=== PATIENT | female | born 1990 | race American Indian/Alaskan Native ===

== ENCOUNTER 2018-02-13 16:29 | Emergency (ER) | payer OTHER ==
[~2018-02-13] VITALS: Ht 165.1 cm; Wt 78.0 kg
[~2018-02-13 16:29] MED LIST: ACYCLOVIR800 MG PO; ASHLYNA 0.15-01 EACH PO; IBUPROFEN800 MG PO; NAPROSYN500 MG PO; NORCO 5-325 TA1 EACH PO; PREMARIN1.25 MG PO; PRENATAL-FOLIC1 EACH PO; ZOFRAN4 MG PO
== END 2018-02-13 18:25 | disposition home or self-care (01) ==
LOC: ED 16:29
DX: O99.89 Other specified diseases and conditions complicating pregnancy, childbirth and the puerperium (principal); R10.9 Unspecified abdominal pain; Z87.891 Personal history of nicotine dependence; Z79.899 Other long term (current) drug therapy; Z3A.13 13 weeks gestation of pregnancy
CPT/HCPCS: 80053; 81001; 85025; 99283

== ENCOUNTER 2020-06-07 12:40 | Inpatient (IN) | payer OTHER ==
[~2020-06-07] VITALS: Ht 165.1 cm; Wt 96.2 kg
[~2020-06-07 12:40] MED LIST changes: +ACYCLOVIR400 MG PO; +PRENATAL VITAM1 EAC6 PO
[2020-06-08] MEDS ORDERED: VITAFOL-OB+DHA1 EACH PO (00:42)
[2020-06-08] MEDS ORDERED: ASPIRIN81 MG PO (00:42)
[2020-06-08] MEDS ORDERED: ACYCLOVIR400 MG PO (00:54)
--- NOTE | 2020-06-08 03:16 | PR ---
[facility] [address] [place], [place] [address] Signed Progress Notes IP Datetime Report Generated by CPN: 06/08/2020 03:15 PROGRESS NOTES: [id number] Impression: Normal Progression of Labor; Gest. HTN/PreEclampsia/Eclampsia Other Impressions: Gestational HTN Procedures: Artificial ROM Plan: Continue Present Management Other Plans: Epidural on demand Informed Consent Obtain: Vaginal Delivery Other Informed Consents: AROM VITAL SIGNS: [id number] Vital Signs: Reviewed VS Notable Details: slightly elevated systolic EXAM: [id number] Dilatation: 3.0 Effacement: 80 Station: -3 Contractions: rare MEMBRANES: [id number] Comments: Pt seen and examined. AROM performed w/out difficulty. Cat 1 tracing. Continue expectant management. Epidural on demand. Reviewed anticipated course of labor. Pt w/ gestational HTN w/out severe range BPs or severe sx. Will monitor. FETUS A: [id number] FHR Baseline: 130 Variability: Moderate 6-25bpm Accelerations: 15X15 Decelerations: None FHR Category: Category I Presentation: Vertex Comments on Fetus A: No evidence of metabolic acidosis FETUS B: [id number] Signing Physician: Paddy Hare DO Copies: ~ *Electronically Signed* 06/08/20 031 PADDY HARE DO PATIENT NAME: MERRILL CONNER PROGRESS NOTE DATE OF : [birth year] PHYSICIAN: PADDY HARE DO RPT #: [id number] REPORT IS CONFIDENTIAL AND NOT TO BE RELEASED WITHOUT AUTHORIZATION
--- NOTE | 2020-06-08 08:03 | PR ---
[facility] [address] [place], [place] [address] Signed Progress Notes IP Datetime Report Generated by CPN: 06/08/2020 08:03 PROGRESS NOTES: [id number] Impression: Normal Progression of Labor; Reassuring Heart Rate Other Impressions: Gestational HTN Procedures: Sterile Vag Exam Plan: Continue Present Management Other Plans: Epidural on demand Informed Consent Obtain: Vaginal Delivery Other Informed Consents: AROM VITAL SIGNS: [id number] Vital Signs: Reviewed VS Notable Details: slightly elevated systolic EXAM: [id number] Dilatation: 6.0 Effacement: 80 Station: -3 Contractions: rare MEMBRANES: [id number] Comments: Pt seen and examined. Doing well. Comfortable w/ epidural. Cx 6 / 80 but very soft and stretchy. Reviewed anticiapted course of labor. If no change noted on next exam, would likely place IUPC and start pictocin. Pt understands and agrees. FETUS A: [id number] FHR Baseline: 130 Variability: Moderate 6-25bpm Accelerations: 15X15 Decelerations: None FHR Category: Category I Presentation: Vertex Comments on Fetus A: No evidence of metabolic acidosis FETUS B: [id number] Signing Physician: Paddy Hare DO Copies: ~ *Electronically Signed* 06/08/20 0803 PADDY HARE DO PATIENT NAME: MERRILL CONNER PROGRESS NOTE DATE OF : 91 PHYSICIAN: PADDY HARE DO RPT #: [id number] REPORT IS CONFIDENTIAL AND NOT TO BE RELEASED WITHOUT AUTHORIZATION
--- NOTE | 2020-06-08 09:03 | PR ---
[facility] [address] [place], [place] [address] Signed Progress Notes IP Datetime Report Generated by CPN: 06/08/2020 09:03 PROGRESS NOTES: [id number] Impression: Reassuring Heart Rate Other Impressions: slow progress of labor Procedures: Intrauterine Pressure Catheter; Scalp Electrode; Sterile Vag Exam Plan: Continue Present Management Other Plans: Epidural on demand Informed Consent Obtain: Vaginal Delivery Other Informed Consents: AROM VITAL SIGNS: [id number] Vital Signs: Reviewed VS Notable Details: slightly elevated systolic EXAM: [id number] Dilatation: 6.0 Effacement: 80 Station: -2 Contractions: rare MEMBRANES: [id number] Comments: Pt seen and examined. Developed recurrent variable decelerations with moderate variability. Discussed IUPC and FSE and these were placed without difficulty. Will start amnioinfusion. FETUS A: [id number] FHR Baseline: 130 Variability: Moderate 6-25bpm Accelerations: 15X15 Decelerations: None FHR Category: Category I Presentation: Vertex Comments on Fetus A: No evidence of metabolic acidosis FETUS B: [id number] Signing Physician: Paddy Hrae DO Copies: ~ *Electronically Signed* 06/08/20 09 PADDY HARE DO PATIENT NAME: MERRILL CONNER PROGRESS NOTE DATE OF : 91 PHYSICIAN: PADDY HARE DO RPT #: [id number] REPORT IS CONFIDENTIAL AND NOT TO BE RELEASED WITHOUT AUTHORIZATION
--- NOTE | 2020-06-08 12:14 | PR ---
[facility] [address] [place], [place] [address] Signed Progress Notes IP Datetime Report Generated by CPN: 06/08/2020 12:14 PROGRESS NOTES: [id number] Impression: Normal Progression of Labor; Reassuring Heart Rate Other Impressions: slow progress of labor Procedures: Sterile Vag Exam Plan: Augmentation Other Plans: Epidural on demand Informed Consent Obtain: Vaginal Delivery Other Informed Consents: AROM VITAL SIGNS: [id number] Vital Signs: Reviewed VS Notable Details: slightly elevated systolic EXAM: [id number] Dilatation: 8.0 Effacement: 90 Station: -2 Contractions: rare MEMBRANES: [id number] Comments: Pt seen and examined. Cervical change noted despite inadequate contractions. FHT reassuring. Will start pitocin augmentation. Anticipate . Reviewed adequate pelvis and EFW _ 7#10oz FETUS A: [id number] FHR Baseline: 130 Variability: Moderate 6-25bpm Accelerations: 15X15 Decelerations: None FHR Category: Category I Presentation: Vertex Comments on Fetus A: No evidence of metabolic acidosis FETUS B: [id number] Signing Physician: Paddy Hare DO Copies: ~ *Electronically Signed* 06/08/20 1214 PADDY HARE DO PATIENT NAME: MERRILL CONNER PROGRESS NOTE DATE OF : 91 PHYSICIAN: PADDY HARE DO RPT #: [id number] REPORT IS CONFIDENTIAL AND NOT TO BE RELEASED WITHOUT AUTHORIZATION
--- NOTE | 2020-06-08 14:16 | PR ---
[facility] [address] [place], [place] [address] Signed Progress Notes IP Datetime Report Generated by CEE: 06/08/2020 14:16 PROGRESS NOTES: [id number] Impression: Normal Progression of Labor; Reassuring Heart Rate Other Impressions: slow progress of labor Procedures: Sterile Vag Exam Plan: Continue Present Management; Anesthesia Consult; Anticipate Vaginal Delivery Other Plans: Epidural on demand Informed Consent Obtain: Vaginal Delivery Other Informed Consents: AROM VITAL SIGNS: [id number] Vital Signs: Reviewed VS Notable Details: slightly elevated systolic EXAM: [id number] Dilatation: 9.5 Effacement: 100 Station: 0 Contractions: rare MEMBRANES: [id number] Comments: Pt seen and examined. Much more uncomfortable w/ contractions. Desires rebolus of epidural and anesthesia notified. 9.5cm 0 station. ROT position with some caput. Again reviewed adequate pelvis and EFW. Anticipate . All questions answered FETUS A: [id number] FHR Baseline: 130 Variability: Moderate 6-25bpm Accelerations: 15X15 Decelerations: None FHR Category: Category I Presentation: Vertex Comments on Fetus A: No evidence of metabolic acidosis FETUS B: [id number] Signing Physician: Paddy Hare DO Copies: ~ *Electronically Signed* 06/08/20 1416 PADDY HARE DO PATIENT NAME: MERRILL CONNER PROGRESS NOTE DATE OF : 91 PHYSICIAN: PADDY HARE DO RPT #: [id number] REPORT IS CONFIDENTIAL AND NOT TO BE RELEASED WITHOUT AUTHORIZATION
--- NOTE | 2020-06-08 15:27 | PR ---
[facility] [address] [place], [place] [address] Signed Progress Notes IP Datetime Report Generated by CPN: 06/08/2020 15:27 PROGRESS NOTES: [id number] Impression: Normal Progression of Labor; Reassuring Heart Rate Other Impressions: slow progress of labor Procedures: Sterile Vag Exam Plan: Continue Present Management; Anticipate Vaginal Delivery Other Plans: Epidural on demand Informed Consent Obtain: Vaginal Delivery Other Informed Consents: AROM VITAL SIGNS: [id number] Vital Signs: Reviewed VS Notable Details: slightly elevated systolic EXAM: [id number] Dilatation: 9.5 Effacement: 100 Station: 0 Contractions: rare MEMBRANES: [id number] Comments: Pt seen and examined. Doing well. Comfortable w/ contractions after epidural rebolus. vertex now spontaneously rotated to occiput anterior position and +1 station. Will start pushing and anticipate soon. Reviewed anticpated course of 2nd stage of labor w/ pt. FETUS A: [id number] FHR Baseline: 130 Variability: Moderate 6-25bpm Accelerations: 15X15 Decelerations: None FHR Category: Category I Presentation: Vertex Comments on Fetus A: No evidence of metabolic acidosis FETUS B: [id number] Signing Physician: Paddy Hare DO Copies: ~ *Electronically Signed* 06/08/20 1527 PADDY HARE DO PATIENT NAME: MERRILL CONNER PROGRESS NOTE DATE OF : 91 PHYSICIAN: PADDY HARE DO RPT #: [id number] REPORT IS CONFIDENTIAL AND NOT TO BE RELEASED WITHOUT AUTHORIZATION
--- NOTE | 2020-06-09 12:31 | PR ---
[facility] [address] [facility] [place], [place] [address] Signed PP Progress Notes Datetime Report Generated by CPN: 06/09/2020 12:30 SUBJECTIVE: [id number] Pain: Within Normal Limits Nausea/Vomiting: Denies Flatus: Yes Bowel Movement: No Vital Signs: [id number] Vital Signs: Reviewed; Within Normal Limits EXAM: Ongoing Cardiovascular: Normal Respiratory: Normal Abdomen/Uterus: Normal Lochia: Normal Vulva/Perineum: Not Done Breasts: Not Done CVA Tenderness: Normal Extremities: Normal Incision: Not Applicable Progress: Not Applicable Exam Comments: Fundus firm U-2 nontender IMPRESSION/PLAN/PROCEDURES: [id number] Impression: Normal Progression Other Impression: Gestational HTN Plan: Discharge Progress Notes: Pt seen and examined. Doing well. Ambulating, voiding, and tolerating full diet. Pain and lochia minimal. Bottle feeding. No severe range BPs. No RO, RUQ pain, or visual changes. No questions or concerns. Desires d/c home today. Reviewed d/c instructions in detail. F/U 3 d BP check, 2 wk pp visit Signing Physician: Paddy Hare DO Copies: ~ *Electronically Signed* 06/09/20 8532 PADDY HARE DO PATIENT NAME: MERRILL CONNER PROGRESS NOTE DATE OF : 91 PHYSICIAN: PADDY HARE DO RPT #: [id number] REPORT IS CONFIDENTIAL AND NOT TO BE RELEASED WITHOUT AUTHORIZATION
== END 2020-06-09 18:40 | disposition home or self-care (01) | DRG 768 ==
LOC: FBC 12:40
PROVIDERS: ADMIT Obstetrics & Gynecology; ATTEND Obstetrics & Gynecology
PROC: 3E0P7VZ Introduction of Hormone into Female Reproductive, Via Natural or Artificial Opening (ICD-10-PCS; 2020-06-07)
PROC: 10E0XZZ Delivery of Products of Conception, External Approach (ICD-10-PCS; principal; 2020-06-08)
PROC: 0UQJXZZ Repair Clitoris, External Approach (ICD-10-PCS; 2020-06-08)
PROC: 10907ZC Drainage of Amniotic Fluid, Therapeutic from Products of Conception, Via Natural or Artificial Opening (ICD-10-PCS; 2020-06-08)
PROC: 10H07YZ Insertion of Other Device into Products of Conception, Via Natural or Artificial Opening (ICD-10-PCS; 2020-06-08)
PROC: 00HU33Z Insertion of Infusion Device into Spinal Canal, Percutaneous Approach (ICD-10-PCS; 2020-06-08)
PROC: 3E0R3BZ Introduction of Anesthetic Agent into Spinal Canal, Percutaneous Approach (ICD-10-PCS; 2020-06-08)
PROC: 3E0234Z Introduction of Serum, Toxoid and Vaccine into Muscle, Percutaneous Approach (ICD-10-PCS; 2020-06-09)
DX: O13.4 Gestational [pregnancy-induced] hypertension without significant proteinuria, complicating childbirth (principal); Z37.0 Single live birth; O98.32 Other infections with a predominantly sexual mode of transmission complicating childbirth; Z3A.39 39 weeks gestation of pregnancy; O76 Abnormality in fetal heart rate and rhythm complicating labor and delivery; O32.2XX0 Maternal care for transverse and oblique lie, not applicable or unspecified; A60.04 Herpesviral vulvovaginitis; O26.893 Other specified pregnancy related conditions, third trimester; O66.0 Obstructed labor due to shoulder dystocia; O69.1XX0 Labor and delivery complicated by cord around neck, with compression, not applicable or unspecified; O77.0 Labor and delivery complicated by meconium in amniotic fluid; O71.82 Other specified trauma to perineum and vulva; Z67.41 Type O blood, Rh negative; Z87.891 Personal history of nicotine dependence; Z79.899 Other long term (current) drug therapy
CPT/HCPCS: 01960; 36415; 82565; 82570; 83030; 84156; 84450; 84520; 84550; 85025; 85027; 86850; 86900; 86901; A9270; J2590; J2790; J2795; J7121

== ENCOUNTER 2021-04-16 06:44 | Inpatient (IN) | payer OTHER ==
[~2021-04-16] VITALS: Ht 165.1 cm; Wt 99.3 kg
[~2021-04-16 06:44] MED LIST changes: +ASPIRIN81 MG PO; +VITAFOL-OB+DHA1 EACH PO
--- NOTE | 2021-04-16 09:42 | NUR ---
04/16/21 0942 Edel Myrick 0932- PT ARRIVES TO [facility] ROOM #106. PT REPORTS NO PAIN OR NAUSEA. RESP EVEN AND UNLABORED. OXYGEN SAT HIGH 90'S ON RA. BABY WITH FATHER AT THE BEDSIDE. 0936- BABY ON PT'S CHEST. MICHELLE ALBA AT THE BEDSIDE WELL.
--- NOTE | 2021-04-17 18:10 | PR ---
[facility] [address] [facility] [place], [place] [address] Signed PP Progress Notes Datetime Report Generated by CPN: 04/17/2021 18:10 SUBJECTIVE: [id number] Pain: Within Normal Limits Nausea/Vomiting: Denies Flatus: Yes Bowel Movement: No Vital Signs: [id number] Vital Signs: Reviewed; Within Normal Limits EXAM: Ongoing Cardiovascular: Normal Respiratory: Normal Abdomen/Uterus: Normal Lochia: Normal CVA Tenderness: Normal Extremities: Normal Incision: Normal Progress: Not Applicable Exam Comments: Fundus firm U-2 nontender. Incision healing well IMPRESSION/PLAN/PROCEDURES: [id number] Impression: Normal Progression Plan: Continue Present Management Progress Notes: Pt seen and examined. Doing well. Ambulating, voiding, and tolerating full diet. Pain and lochia minimal. Bottle feeding. No RO, RUQ pain, or visual changes Signing Physician: Paddy Hare DO Copies: ~ *Electronically Signed* 04/17/21 181 PADDY HARE DO PATIENT NAME: MERRILL CONNER [place] PROGRESS NOTE DATE OF : 91 PHYSICIAN: PADDY HARE DO [facility] #: [id number] REPORT IS CONFIDENTIAL AND NOT TO BE RELEASED WITHOUT AUTHORIZATION
--- NOTE | 2021-04-18 14:32 | PR ---
[facility] [address] [facility] [place], [place] [address] Signed PP Progress Notes Datetime Report Generated by CPN: 04/18/2021 14:32 SUBJECTIVE: [id number] Pain: Within Normal Limits Nausea/Vomiting: Denies Flatus: Yes Bowel Movement: No Vital Signs: [id number] Vital Signs: Reviewed Notable Details: No severe range BPs EXAM: Ongoing Cardiovascular: Normal Respiratory: Normal Abdomen/Uterus: Normal Lochia: Not Done Vulva/Perineum: Not Done Breasts: Not Done CVA Tenderness: Normal Extremities: Normal Incision: Normal Progress: Not Applicable Exam Comments: Fundus firm U-2 nontender IMPRESSION/PLAN/PROCEDURES: [id number] Impression: Normal Progression Other Impression: Gestational HTN Plan: Remove Teddy; Discharge Progress Notes: Pt seen and examined. Doing well. Ambulating, voiding, and tolerating full diet. Pain and lochia minimal. Bottlefeeding. No RO, RUQ pain or visual changes. No severe range BPs. Instructed pt to check BPs at home due to COVID positive. [place] removed by RN. F/U in office in 2 wks Signing Physician: Paddy Hare DO Copies: ~ *Electronically Signed* 04/18/21 1432 PADDY HARE DO PATIENT NAME: MERRILL CONNER PROGRESS NOTE DATE OF : 91 PHYSICIAN: PADDY HARE #: [id number] REPORT IS CONFIDENTIAL AND NOT TO BE RELEASED WITHOUT AUTHORIZATION
--- NOTE | 2021-05-08 07:58 | OR ---
[address] [address] Signed DATE OF OPERATION: 04/16/2021 SURGEON: Paddy Hare DO PREOPERATIVE DIAGNOSES: 1. Intrauterine at 38 and 5 weeks gestation. 2. Active labor with advanced cervical dilation. 3. Coronavirus disease positive. 4. Possible partial abruption. 5. Possible gestational hypertension. 6. History of shoulder dystocia. POSTOPERATIVE DIAGNOSES: 1. Intrauterine at 38 and 5 weeks gestation. 2. Active labor with advanced cervical dilation. 3. Coronavirus disease positive. 4. Possible partial abruption. 5. Possible gestational hypertension. 6. History of shoulder dystocia. PROCEDURE PERFORMED: Primary low transverse delivery. SURGEON: Paddy Hare DO ACADEMIC SUPPORT COORDINATOR: Jennifer Menjivar DO ANESTHESIA: Spinal. ESTIMATED BLOOD LOSS: 800 mL. COMPLICATIONS: None. FINDINGS: Viable female , born in the LOT position, nuchal with clear amniotic fluid. Electronically Signed By: PADDY HARE DO 05/08/21 0758 PATIENT NAME: MERRILL CONNER OPERATIVE REPORT DATE OF : [birth year] REPORT #: [id number] PHYSICIAN: PADDY HARE DO PCP: NO PRIMARY CARE PHYSICIAN REPORT IS CONFIDENTIAL AND NOT TO BE RELEASED WITHOUT AUTHORIZATION [address] [address] Signed Vigorous at delivery. Weight pending as well as blood gases. See documentation for Apgars. Normal uterus, tubes, and ovaries. INDICATIONS: Ms. Conner is a 30-year-old, G5, P4, white female, who presented to Labor and Delivery with advanced cervical dilation with onset of contractions approximately 1 hour previously that awoke her from sleep. Upon presentation, the patient was found to be noted to be 8 cm dilated with intact membranes. The patient had requested primary low-transverse delivery for history of shoulder dystocia with affected child. Risks, benefits, and alternatives were discussed in detail with the patient. The patient understands and wishes to proceed with the procedure. Small amount of vaginal bleeding was noted and suspicion for possible partial abruption was raised. The patient had elevated blood pressures. Preeclampsia workup is pending. TECHNIQUE: The patient was taken to the operating room where a time-out was performed to confirm correct patient and correct procedure. Spinal anesthesia was adequately established. The patient was then prepped and draped in the supine position with a bump under the right hip. A Miller catheter had previously been inserted. Ancef 2 g preoperatively were given as well as heparin 5000 units. Shortly upon presentation, terbutaline 0.25 mg had been administered to the patient as well. Spinal was checked and made sure to be adequate. Pfannenstiel skin incision was made using a surgical scalpel and carried down to the fascia. Fascia was nicked in the midline. Fascial incision was extended bilaterally using curved Harris scissors. The fascia was grasped with Sergey's, elevated, and the underlying rectus muscle dissected off bluntly and sharply. Rectus muscles were then divided bluntly in the midline and peritoneum was grasped with hemostats, elevated, and entered sharply. Peritoneal incision was extended bilaterally using sharp and blunt dissection and the lower uterine segment identified. An Nehemiah self retractor was placed and hysterotomy was performed using a surgical scalpel. Hysterotomy was extended using blunt dissection and amnion was ruptured for clear fluid. The head was elevated into the abdomen and no nuchal cord was identified. The baby was then delivered with the assistance of gentle fundal pressure. The was vigorous and cried upon delivery and the cord was doubly clamped and cut. was handed to waiting pediatric team for further care. A portion of the cord was retained for cord gases and cord blood was obtained. The placenta was expressed intact with a marginally inserted 3-vessel cord with possible marginal abruption. This was sent to pathology for further evaluation. Attention was turned to the uterus. Brisk bleeding was noted from the left uterine artery. This was clamped with T-clamp and made hemostatic with 0 Monocryl suture. Hysterotomy was then repaired using 0 Monocryl suture in two layers, the first being a running locked and the second a vertical imbricating suture after the uterine cavity was cleared of any remaining products of conception or clot. Small amount of oozing was noted from the left side of the hysterotomy and this was made Electronically Signed By: PADDY HARE DO 05/08/21 0758 PATIENT NAME: MERRILL CONNER OPERATIVE REPORT DATE OF : [birth year] REPORT #: [id number] PHYSICIAN: PADDY HARE DO PCP: NO PRIMARY CARE PHYSICIAN REPORT IS CONFIDENTIAL AND NOT TO BE RELEASED WITHOUT AUTHORIZATION [facility] [address] [place] [id number] Signed hemostatic with an [place] stitch using 0 Monocryl. The pelvis was irrigated and found to be hemostatic. Normal tubes and ovaries were identified. The Nehemiah self retractor was removed. ACell sheet was applied to the lower uterine segment and peritoneum was reapproximated using 2-0 Vicryl in a running nonlocked manner. Rectus was examined, found to be hemostatic and gently plicated in the midline using 0 Vicryl suture. ACell powder was applied to the rectus after confirming hemostasis. The fascia was reapproximated using 0 Vicryl in a running nonlocked manner. Subcu was made hemostatic, irrigated, and then reapproximated with 2-0 Vicryl in a running nonlocked manner. Skin was reapproximated using surgical ralph. The uterus was Crede'd for scant amount of blood and the patient was taken to PACU in good and stable condition. Sponge, needle, instrument count was correct x2 at the end of the procedure. Dr. Menjivar was present and participated in all portions of procedure. Paddy Hare DO JDW/MODL /[id number] Copies: ~ Electronically Signed By: PADDY HARE DO 05/08/21 0758 PATIENT NAME: MERRILL CONNER OPERATIVE REPORT DATE OF : [birth year] REPORT #: [id number] PHYSICIAN: PADDY HARE DO PCP: NO PRIMARY CARE PHYSICIAN REPORT IS CONFIDENTIAL AND NOT TO BE RELEASED WITHOUT AUTHORIZATION
== END 2021-04-18 16:50 | disposition home or self-care (01) | DRG 786 ==
LOC: LAB 06:44 → FBC 08:10
PROVIDERS: ADMIT Obstetrics & Gynecology; ATTEND Obstetrics & Gynecology
PROC: 8E0ZXY6 Isolation (ICD-10-PCS; 2021-04-16)
PROC: 10D00Z1 Extraction of Products of Conception, Low, Open Approach (ICD-10-PCS; principal; 2021-04-16 09:00)
DX: O13.4 Gestational [pregnancy-induced] hypertension without significant proteinuria, complicating childbirth (principal); U07.1 COVID-19; O98.52 Other viral diseases complicating childbirth; Z3A.38 38 weeks gestation of pregnancy; Z37.0 Single live birth; Z87.442 Personal history of urinary calculi
CPT/HCPCS: 01961; 80053; 82570; 82803; 83030; 83615; 84156; 84550; 85027; 86850; 86900; 86901; 88307; J0690; J1200; J1644; J1650; J1885; J2001; J2274; J2370; J2405; J2590; J2790; J3010; J3105; J7040; J7121